=== PATIENT | male | born 1975 | race Caucasian/White ===

== ENCOUNTER 2023-02-15 07:18 | Emergency (ER) | payer SELFPAY ==
[2023-02-15] VITALS (15 sets, daily range): BP systolic 88–120; BP diastolic 42–69
[~2023-02-15] VITALS: Ht 172.7 cm; Wt 113.4 kg
[~2023-02-15 07:18] MED LIST: KLONOPIN2 MG OR; LORTAB 7.5 OR; RISPERDAL1 M1 OR; RISPERDAL2 MG PO; TYLENOL500 MG OR; ULTRAM50 M1 PO; ZOLOFT50 MG PO
[2023-02-15 07:46] LABS: BASO% 0.4 % (0-3); HEMATOCRIT 43.4 % (39.0-50.0); HEMOGLOBIN 14.7 g/dl (14.0-18.0); IMMATURE GRANULOCYTES 0.1 % (0.0-5.0); LYMPH% 16.2 % (15-41); MEAN CELL VOLUME 89.1 fL CALC (80.0-100.0); MEAN CORPUSCULAR HGB 30.2 pG CALC (26.0-32.0); MEAN CORPUSCULAR HGB CONC 33.9 g/dL CAL (32.0-36.0); MONO% 6.4 % (2-13); NEUT# 10.02 thou/uL (1.82-7.42); NEUT% 71.9 % (42-76); RED BLOOD COUNT 4.87 mill/uL (4.70-6.10); RED CELL DISTRI WIDTH 13.3 % (11.5-15.5)
[2023-02-15 08:00] LABS: ALBUMIN 3.9 g/dL (3.2-5.0); ALKALINE PHOSPHATASE 109 u/l (38-126); ANION GAP 10 (6-22 (CALC)); BILIRUBIN, TOTAL 0.9 mg/dL (0.2-1.3); BUN 17 mg/dL (9-20); BUN/CREATININE RATIO 19 (12-20 (CALC)); CARBON DIOXIDE 24 mmol/l (22-30); CHLORIDE 108 mmol/l (95-108); CREATININE 0.9 mg/dL (0.7-1.3); GFR FOR AFR.AMER. > 60 ML/MIN (>=60 (CALC)); GFR OTHER RACES > 60 ML/MIN (>=60 (CALC)); SGOT/AST 30 u/l (17-59); SODIUM 138 mmol/l (137-146); TOTAL PROTEIN 6.6 g/dL (6.3-8.2)
[2023-02-15] MEDS ORDERED: ZOFRAN4 MG/TAB PO (11:44)
[2023-02-15] MEDS ORDERED: IMODIUM2 MG PO (11:44)
== END 2023-02-15 12:04 | disposition home or self-care (01) | DRG 392 ==
LOC: ED 07:18
PROVIDERS: Family Medicine
DX: A08.11 Acute gastroenteropathy due to Norwalk agent (principal); F17.200 Nicotine dependence, unspecified, uncomplicated; Z20.822 Contact with and (suspected) exposure to COVID-19
CPT/HCPCS: Q9967

== ENCOUNTER 2023-03-08 17:28 | Emergency (ER) | payer SELFPAY ==
[~2023-03-08] VITALS: Ht 172.7 cm; Wt 114.2 kg
[~2023-03-08 17:28] MED LIST changes: +IMODIUM2 MG PO; +ZOFRAN4 MG/TAB PO
[2023-03-08 19:12] VITALS: BP 110/72
[2023-03-08 19:27] VITALS: BP 119/64
[2023-03-08 19:41] LABS: BASO% 0.4 % (0-3); EOS% 3.9 % (0-8); HEMOGLOBIN 14.3 g/dl (14.0-18.0); IMMATURE GRANULOCYTES 0.2 % (0.0-5.0); LYMPH% 15.8 % (15-41); MEAN CELL VOLUME 90.9 fL CALC (80.0-100.0); MEAN CORPUSCULAR HGB 30.2 pG CALC (26.0-32.0); MEAN CORPUSCULAR HGB CONC 33.3 g/dL CAL (32.0-36.0); MONO% 7.5 % (2-13); NEUT# 10.28 thou/uL (1.82-7.42); NEUT% 72.2 % (42-76); RED BLOOD COUNT 4.73 mill/uL (4.70-6.10); RED CELL DISTRI WIDTH 13.7 % (11.5-15.5)
[2023-03-08 19:42] VITALS: BP 103/56
[2023-03-08 19:58] VITALS: BP 95/49
[2023-03-08 19:58] LABS: ALBUMIN 3.7 g/dL (3.2-5.0); ALKALINE PHOSPHATASE 117 u/l (38-126); ANION GAP 10 (6-22 (CALC)); BUN 10 mg/dL (9-20); BUN/CREATININE RATIO 11 (12-20 (CALC)); CARBON DIOXIDE 26 mmol/l (22-30); CHLORIDE 106 mmol/l (95-108); CREATININE 0.9 mg/dL (0.7-1.3); GFR FOR AFR.AMER. > 60 ML/MIN (>=60 (CALC)); GFR OTHER RACES > 60 ML/MIN (>=60 (CALC)); POTASSIUM 4.3 mmol/l (3.5-5.1); SGOT/AST 22 u/l (17-59); SODIUM 138 mmol/l (137-146); TOTAL PROTEIN 6.5 g/dL (6.3-8.2)
[2023-03-08 20:01] LABS: BILIRUBIN, TOTAL 1.8 mg/dL (0.2-1.3)
[2023-03-08] MEDS ORDERED: CLINDAMYCIN300 M1 PO (21:20)
[2023-03-08] MEDS ORDERED: TRAMADOL HCL50 MG PO (21:20)
[2023-03-08] MEDS ORDERED: NAPROXEN375 MG PO (21:20)
[2023-03-08 21:34] VITALS: BP 95/49
== END 2023-03-08 21:40 | disposition home or self-care (01) | DRG 158 ==
LOC: ED 17:28
PROVIDERS: Nurse Practitioner
DX: K04.7 Periapical abscess without sinus (principal); M84.68XA Pathological fracture in other disease, other site, initial encounter for fracture; K02.9 Dental caries, unspecified; E66.9 Obesity, unspecified; F17.210 Nicotine dependence, cigarettes, uncomplicated
CPT/HCPCS: Q9967